=== PATIENT | female | born 1985 | race Hispanic/Latino ===

== ENCOUNTER 2018-05-19 14:27 | Emergency (ER) | payer OTHER ==
[2018-05-19] MEDS ORDERED: Sodium Chloride 0.9% 1,000 ML IV STA ×2 (15:10→18:29)
--- NOTE | 2018-05-19 15:41 | ED PDOC ---
HPI:Nausea, Vomiting, Diarrhea Time Seen by Provider: 05/19/18 14:59 Chief Complaint (Nursing): Abdominal Pain Chief Complaint (Provider): vomiting and diarrhea History Per: Patient History/Exam Limitations: no limitations Onset/Duration Of Symptoms: Days (yesterday) Associated Symptoms: Nausea, Vomiting, Diarrhea. denies: Fever, Chills Additional Complaint(s): George Banks is a 32 year old female, with a past medical history of ulcerative colitis and gastritis, who presents to the emergency department complaining of vomiting and diarrhea onset yesterday morning. She reports multiple bouts of non bloody watery diarrhea and multiple episodes of vomiting yesterday but states today she just has nausea. She also reports feeling dry and dehydrated. She called her PMD in [place] and was told to come here for IV fluids. She took Vancomycin last week and finished it because her GI guide prescribed it after she was discovered to be positive for C. Diff. She denies any fever, chills, abdominal pain or other medical complaints. Reports nausea since January 2018. Take zofran at home. PMD: None provided. Past Medical History Reviewed: Historical Data, Nursing Documentation, Vital Signs - Medical History PMH: No Chronic Diseases - Surgical History Surgical History: No Surg Hx - Family History Family History: States: Unknown Family Hx - Home Medications Home Medications: Ambulatory Orders Medication Instructions Recorded Metoclopramide HCl [Reglan] 10 mg PO TID PRN #15 tablet 05/19/18 - Allergies Allergies/Adverse Reactions: Allergies Allergy/AdvReac Type Severity Reaction Status Date / Time No Known Allergies Allergy Verified 05/19/18 14:58 Review of Systems ROS Statement: Except As Marked, All Systems Reviewed And Found Negative Constitutional: Negative for: Fever, Chills Gastrointestinal: Positive for: Nausea, Vomiting, Diarrhea. Negative for: Abdominal Pain Physical Exam - Reviewed Nursing Documentation Reviewed: Yes Vital Signs Reviewed: Yes - Physical Exam Appears: Positive for: No Acute Distress Head Exam: Positive for: ATRAUMATIC, NORMAL INSPECTION, NORMOCEPHALIC Skin: Positive for: Normal Color, Warm, Dry Eye Exam: Positive for: Normal appearance, EOMI, PERRL ENT: Positive for: Other (dry mucous membranes) Neck: Positive for: Normal, Painless ROM Cardiovascular/Chest: Positive for: Regular Rate, Rhythm. Negative for: Murmur Respiratory: Positive for: Normal Breath Sounds. Negative for: Respiratory Distress Gastrointestinal/Abdominal: Positive for: Normal Exam, Soft. Negative for: Tenderness, Distended Back: Positive for: Normal Inspection. Negative for: L CVA Tenderness, R CVA Tenderness, Vertebral Tenderness Extremity: Positive for: Normal ROM (upper and lower extremities). Negative for: Deformity, Swelling Neurologic/Psych: Positive for: Alert, Oriented. Negative for: Motor/Sensory Deficits - Laboratory Results Result Diagrams: 05/19/18 16:44 05/19/18 16:44 - Progress Re-evaluation Time: 20:03 Condition: Re-examined, Improved Medical Decision Making Medical Decision Making: Time: 14:59 Initial Impression: vomiting and diarrhea. Differential includes acute viral or bacterial gastroenteritis, and C. Diff. Initial Plan: --CMP --Lipase --Urine --Urine dipstick --CBC w/ differential --Bentyl 10 mg PO --NaCl 1,000 ml IV 1,000 mls/hr --Zofran Inj 4 mg IVP --C diff toxin A B --Reevaluation 200 Patient tolerating PO in ER. Feeling much better. Scribe Attestation: Documented by Bennie Cook, acting as a scribe for Conine Patel MD Provider Scribe Attestation: All medical record entries made by the Scribe were at my direction and personally dictated by me. I have reviewed the chart and agree that the record accurately reflects my personal performance of the history, physical exam, medical decision making, and the department course for this patient. I have also personally directed, reviewed, and agree with the discharge instructions and disposition. Disposition - Clinical Impression Clinical Impression: Vomiting and diarrhea - Patient ED Disposition Is Patient to be Admitted: No Doctor Will See Patient In The: Office Counseled Patient/Family Regarding: Studies Performed, Diagnosis, Need For Followup - Disposition Referrals: Memo London MD, PhD [Staff Provider] - Disposition: Routine/Home Disposition Time: 20:04 Condition: IMPROVED Additional Instructions: GEORGE BANKS, thank you for letting us take care of you today. Your provider was Connie Patel MD and you were treated for VOMITING, DIARRHEA. The emergency medical care you received today was directed at your acute symptoms. If you were prescribed any medication, please fill it and take as directed. It may take several days for your symptoms to resolve. Return to the Emergency Department if your symptoms worsen, do not improve, or if you have any other problems. Please contact your doctor or call one of the physicians/clinics you have been referred to that are listed on the Patient Visit Information form that is included in your discharge packet. Bring any paperwork you were given at discharge with you along with any medications you are taking to your follow up visit. Our treatment cannot replace ongoing medical care by a primary care provider outside of the emergency department. Thank you for allowing the [facility] team to be part of your care today. If you had an X-Ray or CT scan: A Radiologist will review the ED reading if any change in treatment is needed we will contact you. If you had a blood, urine, or wound culture: It will take several days for the results, if any change in treatment is needed we will contact you. If you had an STI test: It will take 48 hours for the results. Please call after 1 week if you have not heard back. Prescriptions: Metoclopramide HCl [Reglan] 10 mg PO TID PRN #15 tablet PRN Reason: Nausea/Vomiting Instructions: Diarrhea in Adolescents and Adults Forms: [employer] (Niuean)
[2018-05-19 17:02] LABS: ALB/GLOB RATIO 1.6 (1.0-2.1); ALBUMIN 4.6 g/dL (3.5-5.0); ALT/SGPT 24 U/L (9-52); AST/SGOT 17 U/L (14-36); BLOOD UREA NITROGEN 14 mg/dl (7-17); CALCIUM 10.5 mg/dL (8.4-10.2); GFR NON-AFRICAN AMERICAN > 60; LIPASE 45 U/L (23-300)
[2018-05-19 17:11] LABS: BASO % 0.3 % (0.0-2.0); EOS % 0.2 % (0.0-4.0); HEMOGLOBIN 14.2 g/dL (12.0-16.0); LYMPH # 0.8 K/uL (1.0-4.3); LYMPH % 17.3 % (20.0-40.0); MEAN CELL VOLUME 86.3 fl (81.0-99.0); MEAN CORPUSCULAR HEMOGLOBIN 28.4 pg (27.0-31.0); MEAN CORPUSCULAR HGB CONC 32.9 g/dL (33.0-37.0); MEAN PLATELET VOLUME 8.2 fl (7.2-11.7); MONO # 0.3 K/uL (0.0-0.8); MONO % 6.9 % (0.0-10.0); NEUT # 3.3 K/uL (1.8-7.0); NEUT % 75.3 % (50.0-75.0); RBC 5.01 Mil/uL (3.80-5.20); RED CELL DISTRIBUTION WIDTH 13.3 % (11.5-14.5); WHITE BLOOD COUNT 4.4 K/uL (4.8-10.8)
[2018-05-19] MEDS ORDERED: Alum-Mag Hydrox-Simethicone Susp (30 mL) PO ONE (17:35)
[2018-05-19] MEDS ORDERED: Alum-Mag Hydrox-Simethicone Susp (30 mL) ONE (17:57)
[2018-05-19 20:09] VITALS: TEMP 98.7
[2018-05-19 20:16] VITALS: BP 123/82; PULSE 80; RESP 15; O2SAT 100
== END 2018-05-19 20:17 | disposition home or self-care (01) ==
LOC: H.ER 14:27
DX: R11.10 Vomiting, unspecified (principal); R19.7 Diarrhea, unspecified
CPT/HCPCS: 80053; 81025; 83690; 85025; 96361; 96374; 96375; 99284; J2405; J2765; J7030